=== PATIENT | male | born 1980 | race Caucasian/White ===

== ENCOUNTER 2018-10-18 06:23 | Emergency (ER) | payer BC ==
[~2018-10-18] VITALS: Ht 152.4 cm; Wt 81.6 kg
[2018-10-18 06:32] VITALS: Ht 152.4 cm; Wt 81.6 kg
[2018-10-18 07:05] LABS: CALCIUM 9.1 mg/dL (8.5-10.1); CARBON DIOXIDE 30.6 mmol/L (21-32); CHLORIDE SERUM 106 mmol/L (98-107); GFR1 > 60 mL/min; GLUCOSE SERUM 102 mg/dL (74-106); SODIUM SERUM 141 mmol/L (136-145)
[2018-10-18 07:10] LABS: ALBUMIN 3.8 g/dL (3.4-5.0); ALKALINE PHOSPHATASE 121 U/L (46-116); ALT/SGPT 45 U/L (16-63); AST/SGOT 33 U/L (15-37); BASOPHIL % 1.1 % (0-2); BILIRUBIN TOTAL 0.37 mg/dL (0.20-1.00); CHOLESTEROL 183 mg/dL (<200); HDL CHOLESTEROL 50 mg/dL (40-60); PHOSPHOROUS 3.3 mg/dL (2.5-4.9); PLATELET COUNT 293 x10^3mcL (130-400); RED CELL DISTRIBUTION WIDTH 12.9 % (11.5-14.5); TOTAL PROTEIN, SERUM 7.8 g/dL (6.4-8.2); URIC ACID 7.3 mg/dL (3.5-7.2)
[2018-10-18 07:15] VITALS: BP 126/85
== END 2018-10-18 07:47 | disposition home or self-care (01) ==
LOC: ED 06:23
PROVIDERS: Emergency Medicine
DX: R00.1 Bradycardia, unspecified (principal); R42 Dizziness and giddiness
CPT/HCPCS: 36415